=== PATIENT | female | born 1950 | race Hispanic/Latino ===

== ENCOUNTER 2019-03-16 10:21 | Observation (INO) | payer MEDICARE, OTHER ==
[~2019-03-16] VITALS: Ht 160 cm; Wt 65.5 kg
[~2019-03-16 10:21] MED LIST: GLUCOPHAGE1000 MG PO; LEVOTHYROXINE50 MCG PO
--- NOTE | 2019-03-16 10:46 | NUR ---
MD JOLLY IN [facility] DONE; PT TO ADMIT
[2019-03-16] MEDS ORDERED: ASPIRIN 81 MG CHEW TAB PO STA (10:49)
[2019-03-16] MEDS ORDERED: NITROGLYCERIN 2% OINT 1 GM PKT TOP ONE (11:00)
[2019-03-16 12:20] LABS: BASOPHILS % 0.6 % (0.0-1.0); EOSINOPHILS # (AUTO) 0.1 (0.0-0.4); EOSINOPHILS % 2.1 % (0.0-6.0); HEMATOCRIT 36.1 % (34.2-44.1); HEMOGLOBIN 12.1 g/dL (12.0-16.0); LYMPHOCYTES # (AUTO) 1.1 (1.0-3.2); MEAN CORPUSCULAR HEMOGLOBIN 29.9 pg (28-32); MEAN CORPUSCULAR HGB CONC 33.5 g/dL (31-35); MEAN CORPUSCULAR VOLUME 89.1 fL (81-99); MONOCYTES # (AUTO) 0.4 (0.2-0.8); MONOCYTES % 7.1 % (4.4-11.3); NEUTROPHILS # (AUTO) 3.6 (2.1-6.9); NEUTROPHILS % 68.8 % (38.7-80.0); PLATELET COUNT 254 x10e3/uL (140-360); RED BLOOD COUNT 4.05 x10e6/uL (3.6-5.1); RED CELL DISTRIBUTION WIDTH 12.9 % (11.7-14.4)
--- NOTE | 2019-03-16 12:28 | Diagnostic Imaging Report ---
Examination: Single AP view of the chest. COMPARISON: None. INDICATION: Chest pain, shortness of breath DISCUSSION: Lines/tubes: None. Lungs: The lungs are well inflated and clear. There is no evidence of pneumonia or pulmonary edema. Pleura: There is no pleural effusion or pneumothorax. Heart and mediastinum: Tortuous thoracic aorta with atherosclerotic calcification. Prominence of the right paratracheal region of the mediastinum likely reflects great vessel tortuosity. Normal heart size without overt pulmonary edema. Bones and soft tissues: No acute bony abnormalities. Degenerative changes in the thoracic spine. IMPRESSION: 1. No acute cardiopulmonary abnormalities. Signed by: Dr. Kalin Ray M.D. on 03/16/2019 12:25 PM
[2019-03-16 12:34] LABS: INR 0.83; PROTHROMBIN TIME 11.9 seconds (11.9-14.5)
[2019-03-16 12:35] LABS: PARTIAL THROMBOPLASTIN TIME 26.3 seconds (23.8-35.5)
[2019-03-16 12:44] LABS: ALANINE AMINOTRANSFERASE 42 IU/L (0-55); ALBUMIN 4.1 g/dL (3.5-5.0); ALBUMIN/GLOBULIN RATIO 1.3 (0.8-2.0); ALKALINE PHOSPHATASE 80 IU/L (40-150); ANION GAP 14.4 mmol/L (8-16); BLOOD UREA NITROGEN 25 mg/dL (7-26); BUN/CREATININE RATIO 16 (6-25); CARBON DIOXIDE 25 mmol/L (22-29); CHLORIDE 103 mmol/L (98-107); CREATINE KINASE 257 IU/L (29-168); CREATININE, SERUM 1.61 mg/dL (0.57-1.11); EST GLOMERULAR FILTRATION RATE 32 ML/MIN (60-); GLUCOSE 178 mg/dL (74-118); POTASSIUM 4.4 mmol/L (3.5-5.1); SODIUM 138 mmol/L (136-145)
[2019-03-16 12:48] LABS: BILIRUBIN,URINE NEGATIVE (NEGATIVE); CLARITY,URINE CLEAR (CLEAR); COLOR,URINE YELLOW (YELLOW); KETONES,URINE NEGATIVE (NEGATIVE); LEUKOCYTE ESTERASE ,URINE TRACE (NEGATIVE); NITRITE,URINE NEGATIVE (NEGATIVE); PROTEIN,URINE DIPSTICK NEGATIVE (NEGATIVE); URINE UROBILINOGEN 0.2 mg/dL (0.2 - 1)
[2019-03-16 12:49] LABS: BACTERIA,URINE RARE /HPF; EPITHELIAL CELLS,URINE RARE /LPF; WBC,URINE (MAN) 0-5 /HPF (0-5)
[2019-03-16] MEDS ORDERED: DEXTROSE 50% SYRINGE 50 ML IV PRN (13:30)
[2019-03-16] MEDS ORDERED: ONDANSETRON HCL INJ 2MG/ML 2ML 2 MG/ML VIAL IV PRN (13:30)
[2019-03-16] MEDS ORDERED: MORPHINE SULFATE 2 MG/ML SYR 1ML IV PRN (13:30)
[2019-03-16] MEDS ORDERED: SODIUM CHLORIDE 0.9% 1000ML 1,000 ML ONE (13:37)
[2019-03-16] MEDS ORDERED: MORPHINE SULFATE INJ 4 MG/ML INJ 1ML IV PRN (13:45)
[2019-03-16] MEDS: SODIUM CHLORIDE 0.9% 1000ML 1,000 ML IV SCH ×2 (14:04→23:15)
[2019-03-16] MEDS: FAMOTIDINE 20 MG/2 ML VIAL IV SCH ×2 (14:04→21:02)
[2019-03-16] MEDS: INSULIN LISPRO 100 UNIT/1 ML 3ML VIAL SQ SCH ×2 (16:53→21:00)
[2019-03-16] MEDS ORDERED: ACETAMINOPHEN 325 MG TAB PO PRN (18:30)
[2019-03-16] MEDS ORDERED: GLIMEPIRIDE4 MG PO (19:00)
[2019-03-16] MEDS ORDERED: LOSARTAN-HCTZ1 EAC1 PO (19:00)
[2019-03-16] MEDS ORDERED: ATORVASTATIN CA10 MG PO (19:00)
[2019-03-16 21:00] VITALS: BP 138/66
[2019-03-16 21:10] VITALS: BP 138/66
[2019-03-16] MEDS ORDERED: ASPIR 8181 MG PO (21:45)
[2019-03-16] MEDS ORDERED: AMLODIPINE BESYL5 MG PO (21:45)
[2019-03-16] MEDS ORDERED: VITAMIN D250000 UNIT PO (21:45)
[2019-03-16 21:54] VITALS: BP 138/66
[2019-03-16 22:12] LABS: CREATINE KINASE 141 IU/L (29-168)
[2019-03-16 23:10] VITALS: BP 146/71
[2019-03-17 04:03] VITALS: BP 127/79
[2019-03-17 05:48] LABS: BASOPHILS % 0.7 % (0.0-1.0); EOSINOPHILS # (AUTO) 0.1 (0.0-0.4); EOSINOPHILS % 2.9 % (0.0-6.0); HEMATOCRIT 33.8 % (34.2-44.1); HEMOGLOBIN 11.3 g/dL (12.0-16.0); LYMPHOCYTES # (AUTO) 1.4 (1.0-3.2); LYMPHOCYTES % 30.4 % (18.0-39.1); MEAN CORPUSCULAR HEMOGLOBIN 30.1 pg (28-32); MEAN CORPUSCULAR HGB CONC 33.4 g/dL (31-35); MEAN CORPUSCULAR VOLUME 89.9 fL (81-99); MONOCYTES # (AUTO) 0.4 (0.2-0.8); MONOCYTES % 8.3 % (4.4-11.3); NEUTROPHILS # (AUTO) 2.6 (2.1-6.9); NEUTROPHILS % 57.3 % (38.7-80.0); PLATELET COUNT 237 x10e3/uL (140-360); RED BLOOD COUNT 3.76 x10e6/uL (3.6-5.1); RED CELL DISTRIBUTION WIDTH 12.9 % (11.7-14.4)
[2019-03-17 06:08] LABS: CREATINE KINASE MB 1.3 ng/mL (0-5.0)
[2019-03-17 06:32] LABS: ALBUMIN 3.3 g/dL (3.5-5.0); ALBUMIN/GLOBULIN RATIO 1.1 (0.8-2.0); ANION GAP 11.1 mmol/L (8-16); CALCIUM 9.5 mg/dL (8.4-10.2); CREATININE, SERUM 1.34 mg/dL (0.57-1.11); POTASSIUM 4.1 mmol/L (3.5-5.1)
--- NOTE | 2019-03-17 06:57 | NUR ---
Left message with Dr Yousif (covering for Dr Janusz Gaona) to notify of new consult for chest pain. Awaiting call back.
[2019-03-17] MEDS: INSULIN LISPRO 100 UNIT/1 ML 3ML VIAL SQ SCH ×3 (07:30→17:18)
[2019-03-17 07:34] VITALS: BP 182/79
[2019-03-17] MEDS ORDERED: ASPIRIN 81 MG ENTERIC COATED PO SCH (09:00)
[2019-03-17] MEDS: SODIUM CHLORIDE 0.9% 1000ML 1,000 ML IV SCH (09:07)
[2019-03-17] MEDS: FAMOTIDINE 20 MG/2 ML VIAL IV SCH (09:07)
[2019-03-17 09:46] LABS: EOSINOPHILS % (MANUAL) 4 % (0-7); LYMPHOCYTES % (MANUAL) 28 % (19-48); MONOCYTES % (MANUAL) 8 % (3.4-9.0); NEUTROPHILS % (MANUAL) 60 % (40-74)
[2019-03-17 09:47] LABS: RBC MORPHOLOGY COMMENT NORMAL
[2019-03-17 09:48] LABS: HYPOCHROMASIA SLIGHT; PLATELET ESTIMATE ADEQUATE; PLATELET MORPHOLOGY COMMENT NORMAL
[2019-03-17 09:50] VITALS: BP 182/79
--- NOTE | 2019-03-17 10:51 | NUR ---
SOCIAL WORK INITIAL ASSESSMENT Party Plan Sales Unit Sales Leader to bedside to discuss plan of care with patient/family. CM/SW role and care transitions discussed. Anticipated discharge plan discussed along with duration of care. CM/SW discussed patients right to make decisions in care. CM/SW work hours given. Patient lives: IN HOUSE WITH DAUGHTER AND 2 GRAND KIDS Admit/Transfer: VIA ED POA/Emergency contact: VISHNU REESE [phone] Current/Previous Home Health: NONE PCP/Follow-up Care: ANTHONY Current/Previous DME: NONE Other Services: NONE Employment Status: RETIRED Areas of Concerns: NONE Referral Needs: NONE Education Needs: NONE IMM/PLEITEZ given and signed (if applicable): UPON ADMISSION PLEITEZ Goal for discharge: RETURN HOME CM/SW left business card at the bedside with contact information. Name and number was also written on the patients whiteboard. Patient verbalized understanding of discussion. CM will follow-up with ongoing discharge and transition of care needs.
[2019-03-17 11:04] VITALS: BP 174/74
[2019-03-17 13:16] LABS: CREATINE KINASE 94 IU/L (29-168)
--- NOTE | 2019-03-17 13:50 | NUR ---
Visit made by the Spiritual Care Department Pastoral Visitor, Tika Urias. PV provided pastoral presence, prayer, hospitality, and supportive listening. Pastoral Visitor informed pt/family of the scope of [employer] and availability. NILES WILCOX Television Producer Spiritual Care Department O: [phone] Pager: [phone] ([phone] number calling from)
[2019-03-17 15:22] VITALS: BP 193/80
[2019-03-17] MEDS ORDERED: ONDANSETRON HCL 4 MG ORAL DISINTEGRATING TAB PO PRN (16:30)
--- NOTE | 2019-03-17 17:53 | NUR ---
CALLED ANSWERING FOR DR. CRUZ TO REQUEST DISCHARGE ORDER; DR. PARMAR (CARDIOLOGY) STATED THAT PATIENT IS OKAY TO DISCHARGE FROM HIS PERSPECTIVE.
--- NOTE | 2019-03-18 01:23 | Consultation ---
DATE OF CONSULTATION: 03/17/2019 Cardiology Consult Note. REASON FOR CONSULT: Chest pain. CHIEF COMPLAINT: Chest pain. HISTORY OF PRESENT ILLNESS: The patient is a 68-year-old female with history of hypertension, hyperlipidemia, and diabetes, recent emotional stress with her young son suffering SD recently. Currently admitted to ICU at [facility]. She presents with episodes of chest pain, feels like tightness in her chest with no radiation, nonexertional. No shortness of breath or diaphoresis. She says she has had similar chest pains for many years now. Initially, she was examined in 2003 when she presented to the ER at outside hospital with very similar complaints. She says at that time, a nuclear stress test was performed. She was told that there was maybe a slight abnormality. She was offered a cardiac cath at that time, however, she declined the procedure at that time and has done well since then. She is able to perform all her daily activities, has not had any heart failure symptoms, and has not had any chest pain since being admitted to the hospital. Given her family situation, the patient is strongly requesting that she rather be discharged and visit her son in followup as an outpatient for workup of this chest pain. REVIEW OF SYSTEMS: As per HPI, otherwise negative. PAST MEDICAL HISTORY: Hypertension, hyperlipidemia, diabetes. FAMILY HISTORY: History of SD in father and grandfather. SOCIAL HISTORY: The patient is a former smoker, used to smoke one pack per month for several years, quit over 20 years ago. Does not drink or abuse drugs. OUTPATIENT MEDICATIONS: Reviewed. OBJECTIVE: VITAL SIGNS: Temperature 98.8, pulse 65, respiratory rate 21, blood pressure 174/74, saturating 97% on room air. GENERAL: Middle-aged female, in no acute distress. CARDIOVASCULAR: Regular rate and rhythm. No murmurs, rubs, or gallops. LUNGS: Clear to auscultation bilaterally. ABDOMEN: Obese, soft, nontender, nondistended. NEURO AND PSYCH: Alert and oriented to person, place, and time. Normal affect. INPATIENT MEDICATIONS: Reviewed. LABORATORY DATA: Reviewed. Notable for troponin's negative x3. LDL of 48, creatinine of 1.3, mildly elevated glucose of 137. IMAGING DATA: Reviewed. TELEMETRY: Data reviewed. Shows normal sinus rhythm. ASSESSMENT AND PLAN: 1. Chest pain. 2. Hypertension, uncontrolled. 3. Hyperlipidemia. 4. Diabetes. PLAN: I had a long discussion with the patient and offered her options for ischemic evaluation including stress test as an inpatient or catheterization as an inpatient. However, the patient insists on going home given her son is critically ill. Her chest pains are not new and have been present for several years now. She prefers to be followed as an outpatient. She will see me in clinic on , March 19. At that point, we will plan to do echocardiogram and a nuclear stress test. I had a long discussion with the patient to return to the ER if she has further chest pains or any other symptoms that are concerning to her. Thank you for this consult. We will continue to follow. MD LILY Connors/MIKAELAL /[id number]
== END 2019-03-17 18:26 | disposition home or self-care (01) ==
LOC: ER 10:21 → ERHOLD 13:23 → IMCU 21:09
PROVIDERS: ADMIT Internal Medicine; ATTEND Internal Medicine
DX: R07.2 Precordial pain (principal); E11.22 Type 2 diabetes mellitus with diabetic chronic kidney disease; I12.9 Hypertensive chronic kidney disease with stage 1 through stage 4 chronic kidney disease, or unspecified chronic kidney disease; E03.9 Hypothyroidism, unspecified; M19.90 Unspecified osteoarthritis, unspecified site; Z82.49 Family history of ischemic heart disease and other diseases of the circulatory system; N28.9 Disorder of kidney and ureter, unspecified; E78.5 Hyperlipidemia, unspecified; N18.3 Chronic kidney disease, stage 3 (moderate); Z79.84 Long term (current) use of oral hypoglycemic drugs
CPT/HCPCS: 36415 ×2; 71045; 80053 ×2; 80061; 81001; 82550 ×2; 82553 ×2; 82948 ×2; 83735; 83880; 84484 ×2; 85025 ×2; 85379; 85610; 85730; 93005; 99284; G0378 ×2; J7030 ×2

== ENCOUNTER 2020-05-08 15:01 | Observation (INO) | payer MEDICARE, OTHER ==
[~2020-05-08] VITALS: Ht 157.5 cm; Wt 63.5 kg
[~2020-05-08 15:01] MED LIST changes: +AMLODIPINE BESYL5 MG PO; +ASPIR 8181 MG PO; +ATORVASTATIN CA10 MG PO; +GLIMEPIRIDE4 MG PO; +LOSARTAN-HCTZ1 EAC1 PO; +VITAMIN D250000 UNIT PO
[2020-05-08] MEDS ORDERED: SODIUM CHLORIDE 0.9% 1000ML 1,000 ML IV STA (15:21)
[2020-05-08] MEDS ORDERED: CEFTRIAXONE SOD 1 GM/NS 50 ML 50 ML IV SCH (15:30)
[2020-05-08] MEDS ORDERED: KETOROLAC TROMETHAMINE 30 MG/ML VIAL IV NR (15:30)
[2020-05-08] MEDS ORDERED: ONDANSETRON HCL INJ 2MG/ML 2ML 2 MG/ML VIAL IV NR (15:30)
[2020-05-08] MEDS: AZITHROMYCIN 500MG/NS 250 ML 250 ML IV SCH (15:50)
[2020-05-08 16:13] LABS: BASOPHILS % 0.4 % (0.0-1.0); EOSINOPHILS # (AUTO) 0.2 (0.0-0.4); EOSINOPHILS % 1.9 % (0.0-6.0); HEMATOCRIT 38.4 % (34.2-44.1); HEMOGLOBIN 12.4 g/dL (12.0-16.0); LYMPHOCYTES # (AUTO) 0.5 (1.0-3.2); LYMPHOCYTES % 4.9 % (18.0-39.1); MEAN CORPUSCULAR HEMOGLOBIN 28.2 pg (28-32); MEAN CORPUSCULAR HGB CONC 32.3 g/dL (31-35); MEAN CORPUSCULAR VOLUME 87.3 fL (81-99); MONOCYTES % 9.6 % (4.4-11.3); NEUTROPHILS # (AUTO) 8.7 (2.1-6.9); NEUTROPHILS % 82.7 % (38.7-80.0); PLATELET COUNT 219 x10e3/uL (140-360); RED CELL DISTRIBUTION WIDTH 14.2 % (11.7-14.4)
--- NOTE | 2020-05-08 16:18 | Diagnostic Imaging Report ---
Examination: Single AP view of the chest. COMPARISON: 03/16/19. INDICATION: Cough and fever. DISCUSSION: Lines/tubes: None. Lungs: Mild increased patchy density in the right upper hemithorax laterally is new since the prior examination and may represent developing pneumonia in the proper clinical setting. The left lung is clear. Pleura: There is no pleural effusion or pneumothorax. Heart and mediastinum: Tortuous thoracic aorta with atherosclerotic calcification. Prominence of the right paratracheal region of the mediastinum again observed, unchanged.. Bones and soft tissues: No acute bony abnormalities. Degenerative changes in the thoracic spine. IMPRESSION: 1. Findings concerning for right upper lobe pneumonia. Recommend follow-up in 6-8 weeks after treatment to document resolution. Signed by: Dr. Tamiko Grimm M.D. on 05/08/2020 4:14 PM
[2020-05-08 16:22] LABS: INR 0.87; PROTHROMBIN TIME 12.3 seconds (11.9-14.5)
[2020-05-08 16:23] LABS: PARTIAL THROMBOPLASTIN TIME 27.5 seconds (23.8-35.5)
[2020-05-08] MEDS ORDERED: SODIUM CHLORIDE 0.9% 1000ML 1,000 ML IV SCH (16:30)
[2020-05-08] MEDS ORDERED: ALBUTEROL SULFATE HFA 8GM INHALATION AEROSOL INH PRN (16:30)
[2020-05-08 16:33] LABS: ALBUMIN/GLOBULIN RATIO 1.1 (0.8-2.0); CREATININE, SERUM 1.07 mg/dL (0.57-1.11); MAGNESIUM 1.7 MG/DL (1.3-2.1)
[2020-05-08 16:42] LABS: B-TYPE NATRIURETIC PEPTIDE2 200.4 pg/mL (0-100)
[2020-05-08 16:45] LABS: INFLUENZAE A&B ANTIGEN (RAPID) NEGATIVE (NEGATIVE)
[2020-05-08 16:46] LABS: STREPTOCOCCUS GRP A ANTIGEN NEGATIVE (NEGATIVE)
[2020-05-08] MEDS ORDERED: DEXTROSE 50% SYRINGE 50 ML IV PRN (17:45)
[2020-05-08] MEDS ORDERED: CLONIDINE HCL 0.2 MG TAB PO PRN (17:45)
--- NOTE | 2020-05-08 18:36 | Emergency Department Note ---
History of Present Illnes History of Present Illness Chief Complaint: COVID PUI History of Present Illness This is a 69 year old female HERE FOR SORE THROAT AND ALSO HAS BODY ACHES, CLIENT HAS BEEN FEELING THIS WAY SINCE SATURDAY NIGHT. CLIENT REPORTS SUBJECTIVE FEVER AND CHILLS. Historian: Patient Arrival Mode: Car Candy Forming Machine Operator Required: No Onset (how long ago): day(s) (3) Radiation: Reports non-radiation Severity: moderate Onset quality: gradual Timing of current episode: intermittent Progression: waxing and waning Chronicity: new Context: Reports recent illness Relieving factors: none Exacerbating factors: none Associated symptoms: Reports fever/chills, Reports malaise, Reports weakness; Denies cough Treatments prior to arrival: none Past Medical/Family History Physician Review I have reviewed the patient's past medical and family history. Any updates have been documented here. Past Medical History Recent Fever: Yes Clinical Suspicion of Infectio: Yes New/Unexplained Change in Ment: No Past Medical History: Hypertension, Diabetes, Hypothyroidism, Hyperlipedemia Other Medical History: ARTHITIS Past Surgical History: Cholecysctectomy, Appendectomy, Hysterectomy, Back Surgery Other Surgery: CARPAL TUNNEL liz, Left elbow sx Social History Smoking Cessation: Never Smoker Counseling Performed: No Alcohol Use: None Any Illegal Drug Use: No TB Exposure/Symptoms: No Physically hurt or threatened: No Other Last Tetanus: UNK Any Pre-Existing Lines (PICC,: No Is patient up to date on immun: Yes Last Flu: UTD Last Pneumovax: UTD Review of Systems Review of Systems Constitutional: Reports as per HPI EENTM: Reports no symptoms Cardiovascular: Reports no symptoms Respiratory: Reports no symptoms Gastrointestinal: Reports no symptoms Genitourinary: Reports no symptoms Musculoskeletal: Reports no symptoms Integumentary: Reports no symptoms Neurological: Reports no symptoms Psychological: Reports no symptoms Endocrine: Reports no symptoms Hematological/Lymphatic: Reports no symptoms Physical Exam Related Data Allergies: Coded Allergies: No Known Allergies (Unverified , 07/31/13) Triage Vital Signs Vital Signs Date Time Temp Pulse Resp B/P (MAP) Pulse Ox O2 Delivery O2 Flow Rate FiO2 05/08/20 15:17 100.5 120 18 191/90 96 Physical Exam CONSTITUTIONAL Constitutional: Present well-developed, Present well-nourished HENT HENT: Present normocephalic, Present atraumatic, Present oropharynx clear/moist, Present nose normal HENT L/R: Present left ext ear normal, Present right ext ear normal EYES Eyes: Reports PERRL, Reports conjunctivae normal NECK Neck: Present ROM normal PULMONARY Pulmonary: Present effort normal, Present breath sounds normal, Present other (MILD DECR BS'S THROUGHOUT) CARDIOVASCULAR Cardiovascular: Present regular rhythm, Present heart sounds normal, Present capillary refill normal, Present normal rate GASTROINTESTINAL Abdominal: Present soft, Present nontender, Present bowel sounds normal GENITOURINARY Genitourinary: Present exam deferred SKIN Skin: Present warm, Present dry MUSCULOSKELETAL Musculoskeletal: Present ROM normal NEUROLOGICAL Neurological: Present alert, Present oriented x 3, Present no gross motor or sensory deficits PSYCHOLOGICAL Psychological: Present mood/affect normal, Present judgement normal Results Laboratory Result Diagram: 05/08/20 1540 05/08/20 1540 Laboratory Laboratory Tests Test 05/08/20 15:59 05/08/20 15:40 Influenza Virus Types A,B Antigen Negative (NEGATIVE) Group A Streptococcus Screen Negative (NEGATIVE) White Blood Count 10.51 x10e3/uL (4.8-10.8) Red Blood Count 4.40 x10e6/uL (3.6-5.1) Hemoglobin 12.4 g/dL (12.0-16.0) Hematocrit 38.4 % (34.2-44.1) Mean Corpuscular Volume 87.3 fL (81-99) Mean Corpuscular Hemoglobin 28.2 pg (28-32) Mean Corpuscular Hemoglobin Concent 32.3 g/dL (31-35) Red Cell Distribution Width 14.2 % (11.7-14.4) Platelet Count 219 x10e3/uL (140-360) Neutrophils (%) (Auto) 82.7 % (38.7-80.0) Lymphocytes (%) (Auto) 4.9 % (18.0-39.1) Monocytes (%) (Auto) 9.6 % (4.4-11.3) Eosinophils (%) (Auto) 1.9 % (0.0-6.0) Basophils (%) (Auto) 0.4 % (0.0-1.0) Neutrophils # (Auto) 8.7 (2.1-6.9) Lymphocytes # (Auto) 0.5 (1.0-3.2) Monocytes # (Auto) 1.0 (0.2-0.8) Eosinophils # (Auto) 0.2 (0.0-0.4) Basophils # (Auto) 0.0 (0.0-0.1) Absolute Immature Granulocyte (auto 0.05 x10e3/uL (0-0.1) Prothrombin Time 12.3 seconds (11.9-14.5) Prothromb Time International Ratio 0.87 Activated Partial Thromboplast Time 27.5 seconds (23.8-35.5) Sodium Level 135 mmol/L (136-145) Potassium Level 4.0 mmol/L (3.5-5.1) Chloride Level 101 mmol/L (98-107) Carbon Dioxide Level 23 mmol/L (22-29) Anion Gap 15.0 mmol/L (8-16) Blood Urea Nitrogen 15 mg/dL (7-26) Creatinine 1.07 mg/dL (0.57-1.11) Estimat Glomerular Filtration Rate 51 ML/MIN (60-) BUN/Creatinine Ratio 14 (6-25) Glucose Level 182 mg/dL (74-118) Lactic Acid Level 0.9 mmol/L (0.5-2.0) Calcium Level 10.0 mg/dL (8.4-10.2) Magnesium Level 1.7 MG/DL (1.3-2.1) Total Bilirubin 0.7 mg/dL (0.2-1.2) Aspartate Amino Transf (AST/SGOT) 19 IU/L (5-34) Alanine Aminotransferase (ALT/SGPT) 17 IU/L (0-55) Alkaline Phosphatase 77 IU/L (40-150) Creatine Kinase 61 IU/L (29-168) Creatine Kinase MB 1.00 ng/mL (0-5.0) Troponin I 0.009 ng/mL (0-0.300) B-Type Natriuretic Peptide 200.4 pg/mL (0-100) Total Protein 7.6 g/dL (6.5-8.1) Albumin 4.0 g/dL (3.5-5.0) Globulin 3.6 g/dL (2.3-3.5) Albumin/Globulin Ratio 1.1 (0.8-2.0) Lab results reviewed: Yes Imaging Imaging results reviewed: Yes Procedures 12 Lead ECG Interpretation ECG Interpretation : ECG: ECG 1 Candy Forming Machine Operator: Interpreted by ED physician Date: May 08, 2020 Time: 16:10 Rhythm: sinus rhythm Ectopy: frequent PVC's Rate: normal (97) QRS axis: normal ST segments normal: Yes T waves normal: Yes Clinical Impression: abnormal ECG Assessment & Plan Medical Decision Making MDM CBC, CHEM'S, CARDIACS, ECG, LACTIC, PANCX'S, COVID, CXR, - R/O COVID, PNUEMONIA, STEMI/NSTEMI, ELECTROLYTE ABNL Reassessment Reassessment SPOKE WITH DR JO (COVERING FOR DR CRUZ) AND VALERIE BELTRAN Assessment & Plan Final Impression: (1) Pneumonia (2) Chest pain (3) Renal insufficiency Depart Disposition: ADMITTED Last Vital Signs Date Time Temp Pulse Resp B/P (MAP) Pulse Ox O2 Delivery O2 Flow Rate FiO2 05/08/20 17:36 99.1 90 20 130/70 96 Home Meds Reported Medications Aspirin (ASPIR 81) 81 Mg Tablet.dr, 1 TAB PO DAILY 03/16/19 Ergocalciferol (Vitamin D2) (VITAMIN D2) 50,000 Unit Capsule, 1 TAB PO UD Take 1 tab po weekly Saturday03/16/19 Amlodipine Besylate (AMLODIPINE BESYLATE) 5 Mg Tablet, 5 MG PO DAILY@1700, #30 TAB 03/16/19 Atorvastatin Calcium (ATORVASTATIN CALCIUM) 10 Mg Tablet, 10 MG PO HS 03/16/19 Losartan/Hydrochlorothiazide (LOSARTAN-HCTZ 100-25 MG TAB) 1 Each Tablet, 1 TAB PO DAILY 03/16/19 Glimepiride (GLIMEPIRIDE) 4 Mg Tablet, 4 MG PO BID 03/16/19 Levothyroxine Sodium (LEVOTHYROXINE SODIUM) 50 Mcg Tablet, 75 MCG PO DAILY, #30 TAB 09/15/14 Metformin Hcl (GLUCOPHAGE) 1,000 Mg Tablet, 1 TAB PO BID 07/31/13 Medications in the ED Ondansetron HCl 4 mg ONCE IV Last administered on 05/08/20at 15:50; Admin Dose 4 MG; Start 05/08/20 at 15:30; Stop 05/08/20 at 16:59; Status DC Ketorolac Tromethamine 30 mg ONCE IV Last administered on 05/08/20at 15:50; Admin Dose 30 MG; Start 05/08/20 at 15:30; Stop 05/08/20 at 16:59; Status DC Sodium Chloride 1,000 ml @ 0 mls/hr Q0M STAT IV Last administered on 05/08/20at 15:50; Admin Dose 999 MLS/HR; Start 05/08/20 at 15:21; Stop 05/08/20 at 15:25; Status DC Ceftriaxone Sodium 50 ml @ 100 mls/hr Q24H IV Last administered on 05/08/20at 15:50; Admin Dose 100 MLS/HR; Start 05/08/20 at 15:30; Stop 05/15/20 at 15:29 Azithromycin 250 ml @ 200 mls/hr DAILY IV Last administered on 05/08/20at 15:50; Admin Dose 200 MLS/HR; Start 05/08/20 at 15:30; Stop 05/15/20 at 15:29 Sodium Chloride 1,000 ml @ 125 mls/hr Q8H IV ; Start 05/08/20 at 16:30; Stop 05/09/20 at 00:29 Albuterol 1-2 puffs RQ4H PRN INH SHORTNESS OF BREATH; Start 05/08/20 at 16:30; Stop 06/07/20 at 16:29 VALENTE CASAS MD May 08, 2020 18:36
--- NOTE | 2020-05-08 18:45 | NUR ---
Received patient from ER via wheelchair. AAOX3 to time, person, place. Respirations even and unlabored. Tele [id number] with bundle branch. Oriented patient to room. Instructed patient to use call light for assistance. Voiced understanding.
[2020-05-08 20:00] VITALS: BP 141/69
--- NOTE | 2020-05-08 20:00 | NUR ---
REPORT RECEIVED FROM LISA VALDEZ, ADVISED THAT PATIENT JUST ARRIVED TO THE FLOOR PRIOR TO END OF SHIFT, ADMISSION STILL PENDING, PATIENT AWAKE ALERT, NO DISTRESS, RA, DENIES PAIN/DISCOMFORT, PENDING COVID RESULTS, CALL LIGHT WITHIN REACH, WILL CONTINUE TO MONITOR
--- NOTE | 2020-05-08 20:00 | NUR ---
Report given to oncoming nurse of patient's status. Resting in bed. No s/s of acute distress noted. Side rails upx2, call light within reach.
[2020-05-08 20:30] VITALS: BP 141/69
[2020-05-08] MEDS: INSULIN REGULAR, HUMAN 100 UNIT/1 ML 3ML VIAL SQ SCH (20:51)
[2020-05-08] MEDS: GLIMEPIRIDE 2 MG TAB PO SCH (20:51)
[2020-05-08] MEDS ORDERED: ATORVASTATIN 10 MG TAB PO SCH (21:00)
[2020-05-08] MEDS ORDERED: ZOLPIDEM TARTRATE 5 MG TAB PO PRN (21:00)
[2020-05-08] MEDS ORDERED: ACETAMINOPHEN 325 MG TAB PO PRN (21:00)
--- NOTE | 2020-05-08 21:19 | Consultation ---
DATE OF CONSULTATION: Pulmonary Critical Care Consultation CHIEF COMPLAINT: Sore throat and fevers. HISTORY OF PRESENT ILLNESS: The patient is a 69-year-old woman with a history of diabetes and hypertension. She notes fever for the past 5 to 7 days. She also has a dry throat. She does not complain of cough. She has mild dyspnea. She has no chest pain. She denies nausea or vomiting. PAST MEDICAL HISTORY: 1. Diabetes. 2. Hypertension. PAST SURGICAL HISTORY: Noncontributory. SOCIAL HISTORY: The patient quit smoking many years ago. She does not drink alcohol. FAMILY HISTORY: There is a history of cardiovascular disease. REVIEW OF SYSTEMS: She has fevers for the past 5 to 7 days. She has no headache. She has no neck pain. She is not having any chest pain. She is not having any cough or dyspnea. She does have some sore throat. She has no nausea or vomiting. There is no leg edema. PHYSICAL EXAMINATION: VITAL SIGNS: The patient is afebrile. The blood pressure is 191/90, saturation is 96%, and the temperature is 100.5. Pulse is 120. HEENT: Shows no facial swelling or erythema. CARDIAC: Reveals regular rate and rhythm with normal S1 and S2. LUNGS: Auscultation of lungs reveals crackles at the bases. There is no wheezing. ABDOMEN: Soft and nontender. There is no rebound or guarding. EXTREMITIES: Shows no leg edema or calf tenderness. There is no cyanosis or clubbing. SKIN: Shows no rashes. NEUROLOGICAL: Shows no focal abnormalities. LABORATORY DATA: White blood cell count is 10.5 and the hemoglobin is 12.4. The platelet count is 219. BUN to creatinine is 15 to 1.27 and the sodium is 135. Urinalysis is pending. RADIOGRAPHIC DATA: Chest x-ray shows possible right upper lobe pneumonia. IMPRESSION: 1. Right upper lobe pneumonia. 2. Diabetes. 3. Hypertension. PLAN: 1. Judicious use of IV fluids. 2. IV antibiotics. 3. Tylenol. 4. Monitor blood sugars and give insulin as needed. 5. Control blood pressure as needed. MD BRIT Marvin/EMILY /[id number]
[2020-05-08 22:07] VITALS: BP 141/69
[2020-05-09] VITALS (8 sets, daily range): BP systolic 138–161; BP diastolic 53–70
[2020-05-09 03:40] LABS: BASOPHILS % 0.2 % (0.0-1.0); EOSINOPHILS % 0.1 % (0.0-6.0); HEMATOCRIT 32.5 % (34.2-44.1); HEMOGLOBIN 10.2 g/dL (12.0-16.0); LYMPHOCYTES # (AUTO) 1.2 (1.0-3.2); LYMPHOCYTES % 15.3 % (18.0-39.1); MEAN CORPUSCULAR HEMOGLOBIN 27.8 pg (28-32); MEAN CORPUSCULAR HGB CONC 31.4 g/dL (31-35); MEAN CORPUSCULAR VOLUME 88.6 fL (81-99); MONOCYTES # (AUTO) 0.9 (0.2-0.8); MONOCYTES % 11.1 % (4.4-11.3); NEUTROPHILS # (AUTO) 5.9 (2.1-6.9); NEUTROPHILS % 72.9 % (38.7-80.0); PLATELET COUNT 181 x10e3/uL (140-360); RED BLOOD COUNT 3.67 x10e6/uL (3.6-5.1); RED CELL DISTRIBUTION WIDTH 14.5 % (11.7-14.4)
[2020-05-09 03:54] LABS: ALBUMIN 3.1 g/dL (3.5-5.0); ANION GAP 11.4 mmol/L (8-16); CALCIUM 8.7 mg/dL (8.4-10.2); CREATININE, SERUM 1.02 mg/dL (0.57-1.11); POTASSIUM 3.4 mmol/L (3.5-5.1)
--- NOTE | 2020-05-09 04:33 | NUR ---
LAB CALLED TO REPORT ABNORMAL BLOOD SUGAR 52, PATIENT SEEN AWAKE ALERT, IN BED, NO S/SX OF HYPOGLYCEMIA NOTED, CAPILLARY BLOOD TESTED READING 70, PATIENT GIVEN SNACK TO SLIGHTLY INCREASE BLOOD SUGAR
--- NOTE | 2020-05-09 05:42 | NUR ---
[facility] CALLED WITH RESULTS COVID NEGATIVE, PT INFORMED OF NEGATIVE RESULTS AND PENDING TRANSFER TO [facility]SURG FLOOR WHEN BED AVAILABLE
[2020-05-09] MEDS ORDERED: LEVOTHYROXINE SODIUM 50 MCG TAB PO SCH (06:00)
--- NOTE | 2020-05-09 06:40 | NUR ---
BSSR GIVEN TO DAYSHIFT RN, PATIENT NEGATIVE COVID RESULTS, MED-SURG BED REMAINS PENDING, PATIENT RESTING NO DISTRESS, ROOM AIR, VSS, CALL LIGHT IWTHIN REACH, STANDARD PRECAUTIONS,
[2020-05-09] MEDS: INSULIN REGULAR, HUMAN 100 UNIT/1 ML 3ML VIAL SQ SCH ×2 (07:30→11:30)
[2020-05-09] MEDS: AZITHROMYCIN 500MG/NS 250 ML 250 ML IV SCH (08:10)
[2020-05-09] MEDS: GLIMEPIRIDE 2 MG TAB PO SCH (08:10)
[2020-05-09 08:41] LABS: CREATINE KINASE MB 0.7 ng/mL (0-5.0)
[2020-05-09] MEDS ORDERED: LOSARTAN POTASSIUM 100 MG TAB PO SCH (09:00)
[2020-05-09] MEDS ORDERED: HYDROCHLOROTHIAZIDE 25 MG TAB PO SCH (09:00)
--- NOTE | 2020-05-09 10:01 | History and Physical ---
HISTORY OF PRESENT ILLNESS: Ms. Rashid is a 69-year-old female with history of diabetes, hypertension, hyperlipidemia, chronic kidney disease, hypothyroidism, who on Saturday, 2 days prior to admission, she started developing severe sore throat and fever. She denies any cough or shortness of breath. She also has some headaches, so she decided to come to the emergency room. When she came to the emergency room, chest x-ray showed upper lobe infiltrate, so patient was admitted to the COVID unit to rule out COVID. First test has been negative. PAST MEDICAL HISTORY: She has diabetes with chronic kidney disease, chronic kidney disease stage 3, hypertension, vitamin D deficiency, hypothyroidism, hyperlipidemia. ALLERGIES: NO KNOWN DRUG ALLERGIES. SOCIAL HISTORY: She does not smoke and she does not drink. She lives at home with her family. SURGICAL HISTORY: She had hysterectomy, cholecystectomy, back surgery and appendectomy. PHYSICAL EXAMINATION: GENERAL: All interrogation was done over the phone. VITAL SIGNS: Temperature is 98.9, blood pressure is 147/67, heart is regular rate 77 per minutes, respiratory rate is 17. LABORATORY DATA: On the blood work; white count is 8.04, hemoglobin 10.2, hematocrit 32.5. Potassium 3.4, creatinine 1.02, glucose is 52. Blood cultures and throat cultures are pending. Chest x-ray show upper lobe infiltrate. ASSESSMENT: 1. Right upper lobe pneumonia, rule out coronavirus. 2. 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 3. Chronic kidney disease, stage 3. 4. Hypertension. 5. Vitamin D deficiency. 6. Hypothyroidism. 7. Hyperlipidemia. PLAN: At present time is to continue to encourage p.o. intake. Continue IV antibiotics. Tylenol for fever and pain. ADA diet and sliding scale with insulin. Continue other home medications. Dr. David Troncoso is the pulmonary doctor on the case and Dr. Julio is Infectious Disease. All these were discussed in detail with the patient. All questions were answered to satisfaction. MD WESLEY Campbell/MODL /[id number]
[2020-05-09 11:07] LABS: CREATINE KINASE MB 0.7 ng/mL (0-5.0)
--- NOTE | 2020-05-09 13:17 | NUR ---
Patient discharged. IV access removed, bleeding controlled and dressing applied. Discharge instructions reviewed with patient and daughter via telephone. Prescription for zpack called into [facility] [address]. patient ambulated off unit in stable condition to daughter's personal vehicle.
[2020-05-09] MEDS ORDERED: AMLODIPINE BESYLATE 5 MG TAB PO SCH (17:00)
--- NOTE | 2020-05-09 17:49 | Consultation ---
DATE OF CONSULTATION: REASON FOR CONSULTATION: Pneumonia. HISTORY OF PRESENT ILLNESS: This patient is a very pleasant 69-year-old female with history of diabetes mellitus, hypertension. She has been sick for the last 5 or 6 days, fever, sore throat. No cough. No shortness of breath. The patient came to emergency room. Her COVID-19 came back negative. Chest x-ray was done showed right upper lobe pneumonia. She says she is doing okay otherwise. PAST MEDICAL HISTORY: Diabetes mellitus and hypertension. PAST SURGICAL HISTORY: Denies. ALLERGIES: NKA. SOCIAL HISTORY: There is no smoking, drug abuse, or alcohol abuse. FAMILY HISTORY: Otherwise unremarkable. REVIEW OF SYSTEMS: Besides as mentioned above, she denies any. PHYSICAL EXAMINATION: GENERAL: She is currently alert, oriented, does not seem acute distress. VITAL SIGNS: Temperature 98.9, heart rate 77, respirations 17, and saturation of 98. HEENT: She is not icteric. NECK: Supple. CHEST: Clear bilaterally. HEART: S1, S2. No S3, S4, or murmur. ABDOMEN: Soft. Bowel sounds present. No tenderness. EXTREMITIES: Edema. SKIN: No rash. IMPRESSION AND PLAN: Pneumonia, community acquired. The patient is clinically doing well and stable, to be discharged home with Levaquin 500 mg p.o. daily for 7 days, to see me in my office in 2 weeks, to come back should she have any shortness of breath, Tylenol as needed, fluid, bedrest. Discussed with the patient. We will follow as an outpatient. MD MARIBELL Talley/EMILY /[id number]
[2020-05-10] MEDS ORDERED: LEVOTHYROXINE SODIUM 75 MCG TAB PO SCH (06:00)
== END 2020-05-09 12:03 | disposition home or self-care (01) ==
LOC: ER 15:01 → INTOOBSV 16:53 → ERHOLD 16:53 → IMCU 18:48
PROVIDERS: ADMIT Internal Medicine; ATTEND Internal Medicine
DX: J18.9 Pneumonia, unspecified organism (principal); I12.9 Hypertensive chronic kidney disease with stage 1 through stage 4 chronic kidney disease, or unspecified chronic kidney disease; E11.22 Type 2 diabetes mellitus with diabetic chronic kidney disease; N18.3 Chronic kidney disease, stage 3 (moderate); E03.9 Hypothyroidism, unspecified; E78.5 Hyperlipidemia, unspecified; Z90.49 Acquired absence of other specified parts of digestive tract; E54 Ascorbic acid deficiency; Z11.59 Encounter for screening for other viral diseases; Z79.82 Long term (current) use of aspirin; Z79.84 Long term (current) use of oral hypoglycemic drugs
CPT/HCPCS: 36415 ×2; 71045; 80053 ×2; 82550 ×2; 82553 ×2; 82948 ×2; 83518; 83605; 83735; 83880; 84484 ×2; 85025 ×2; 85610; 85730; 87040; 87070; 87400; 87635; 93005; 99284; G0378 ×2; J0456 ×2; J0696; J1885; J2405; J7030